=== PATIENT | male | born 1990 | race Two or more races ===

== ENCOUNTER 2021-06-26 16:09 | Emergency (ER) | payer OTHER ==
[~2021-06-26] VITALS: Ht 172.7 cm; Wt 73.0 kg
== END 2021-06-26 19:35 | disposition home or self-care (01) ==
LOC: ER 16:09
DX: R05.9 Cough, unspecified (principal); Z20.822 Contact with and (suspected) exposure to COVID-19
CPT/HCPCS: 71045; 99283